=== PATIENT | male | born 2000 | race American Indian/Alaskan Native ===

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

== ENCOUNTER 2020-11-06 14:40 | Emergency (ER) | payer MEDICAID ==
--- NOTE | 2020-11-06 15:48 | CR ---
Hand Comp Min 3V Lt CLINICAL HISTORY: Injury FINDINGS: There is no acute fracture or dislocation of the hand. There is deformity of the fifth metacarpal from old healed fracture. Impression: Old healed fifth metacarpal fracture
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
== END 2020-11-06 16:15 | disposition home or self-care (01) ==
LOC: JP.ED 14:40
DX: S61.412A Laceration without foreign body of left hand, initial encounter (principal); S61.217A Laceration without foreign body of left little finger without damage to nail, initial encounter; S61.211A Laceration without foreign body of left index finger without damage to nail, initial encounter; W22.8XXA Striking against or struck by other objects, initial encounter
CPT/HCPCS: 12002; 73130-26-LT; 73130-LT; 99283-25

== ENCOUNTER 2020-11-06 18:52 | Emergency (ER) | payer MEDICAID ==
[2020-11-06] MEDS ORDERED: Diphtheria,Pertussis(Acell),Tetanus Vaccine 0.5 ML Syringe IM ONE (20:55)
--- NOTE | 2020-11-06 21:00 | EDM.PDOC ---
ED HPI GENERAL MEDICAL PROBLEM - General Chief Complaint: Wound Recheck Stated Complaint: RECHECK WOUND Time Seen by Provider: 11/06/20 20:55 Source of Information: Reports: Patient, Family (female significant other ) History Limitations: Reports: No Limitations - History of Present Illness INITIAL COMMENTS - FREE TEXT/NARRATIVE: oMno is a 20 year old male whom was evaluated earlier today for multiple abrasions and left hand laceration due to punching a TV. Mono has a history of previous 5th MCP fracture which appears unchanged from previous films. Laceration was repaired and tetanus shot was offered during visit but declined by patient during previous visit. Mono returns requesting tetanus vaccine. - Related Data Allergies Allergy/AdvReac Type Severity Reaction Status Date / Time No Known Allergies Allergy Verified 11/06/20 20:48 Home Meds: Home Meds NK [No Known Home Meds] 07/15/19 [History] Past Medical History HEENT History: Reports: None Cardiovascular History: Reports: None Respiratory History: Reports: Asthma Gastrointestinal History: Reports: None Genitourinary History: Reports: None Musculoskeletal History: Reports: Fracture Other Musculoskeletal History: left hand Neurological History: Reports: None Psychiatric History: Reports: Panic Attack Endocrine/Metabolic History: Reports: None Hematologic History: Reports: None Immunologic History: Reports: None Oncologic (Cancer) History: Reports: None Dermatologic History: Reports: None - Infectious Disease History Infectious Disease History: Reports: None - Past Surgical History Head Surgeries/Procedures: Reports: None Respiratory Surgical History: Reports: None GI Surgical History: Reports: None Male Surgical History: Reports: None Dermatological Surgical History: Reports: None Social & Family History - Caffeine Use Caffeine Use: Reports: None ED ROS GENERAL - Review of Systems Review Of Systems: Comprehensive ROS is negative, except as noted in HPI. ED EXAM, SKIN/RASH Exam: See Below Exam Limited By: No Limitations General Appearance: Alert, WD/WN Eye Exam: Bilateral Eye: Normal Inspection Ears: Hearing Grossly Normal Nose: Normal Inspection Throat/Mouth: Normal Voice, No Airway Compromise Neck: Normal Inspection Respiratory/Chest: No Respiratory Distress Cardiovascular: Normal Peripheral Pulses Extremities: Other (bandages in placed on bilateral hands ) Course - Re-Assessments/Exams Free Text/Narrative Re-Assessment/Exam: 11/06/20 20:58 Questions about wound care and tetanus where answered. Tetanus ordered and patient was monitor in department for 20 minuets without adverse reaction. Departure - Departure Time of Disposition: 09:20 Disposition: Home, Self-Care 01 Clinical Impression: Tetanus toxoid vaccination administered at current visit, Visit for wound check - Discharge Information Instructions: Laceration Care, Adult Referrals: PCP,None [Primary Care Provider] - Additional Instructions: 1. KEEP LACERATION DRY AND CLEAN X 48 HOURS 2. AFTER 48 hours CLEANSE WOUND DAILY AND APPLY TOPICAL ANTIBIOTIC OINTMENT. 3. FOLLOW WOUND CARE INFORMATION GIVEN. 4. FOLLOW UP IN CLINIC IN 3-5 days fro wound check and 7-10 days for suture removal. 5. Tylenol or Ibuprofen for pain and swelling. 6. Return for repeat evaluation if increase, changes, new or worsen symptoms. Discharge Instructions Laceration (Cut) You were seen today for a laceration (cut). Your provider examined your laceration for any problems such a buried foreign body (like glass, a splinter, or gravel), or injury to blood vessels, tendons, and nerves. Your provider may have also rinsed and/or scrubbed your laceration to help prevent an infection. It may not be possible to find all problems with your laceration on the first visit; occasionally foreign bodies or a tendon injury can go undetected. Your laceration may have been closed in one of several ways: No closure: many wounds will heal just fine without closure. Stitches: regular stitches that require removal. [place]ifton: skin regina are often used in the scalp/head. Wound adhesive (glue): skin glue can be used for certain lacerations and doesnt require removal. Wound strips (aka Butterfly bandages or steri-strips): these are bandages that help to close a wound. Absorbable stitches: dissolving stitches that go away on their own and usually dont require removal. A small percentage of wounds will develop an infection regardless of how well the wound is cared for. Antibiotics are generally not indicated to prevent an infection so are only given for a small number of high-risk wounds. Some lacerations are too high risk to close, and are left open to heal because closure can increase the likelihood that an infection will develop. Remember that all lacerations, no matter how expertly repaired, will cause scarring. We consider many factors, techniques, and materials, in our efforts to provide the best possible cosmetic outcome. Generally, every Emergency Department visit should have a follow-up clinic visit with either a primary or a specialty clinic/provider. Please follow-up as instructed by your emergency provider today. Return to the Emergency Department right away if: You have more redness, swelling, pain, drainage (pus), a bad smell, or red streaking from your laceration as these symptoms could indicate an infection. You have a fever of 100.4F or more. You have bleeding that you cannot stop at home. If your cut starts to bleed, hold pressure on the bleeding area with a clean cloth or put pressure over the bandage. If the bleeding does not stop after using constant pressure for 30 minutes, you should return to the Emergency Department for further treatment. An area past the laceration is cool, pale, or blue compared with the other side, or has a slower return of color when squeezed. Your dressing seems too tight or starts to get uncomfortable or painful. For children, signs of a problem might be irritability or restlessness. You have loss of normal function or use of an area, such as being unable to straighten or bend a finger normally. You have a numb area past the laceration. Return to the Emergency Department or see your regular provider if: The laceration starts to come open. You have something coming out of the cut or a feeling that there is something in the laceration. Your wound will not heal, or keeps breaking open. There can always be glass, wood, dirt or other things in any wound. They will not always show up, even on x-rays. If a wound does not heal, this may be why, and it is important to follow-up with your regular provider. Home Care: Take your dressing off in 12-24 hours, or as instructed by your provider, to check your laceration. Remove the dressing sooner if it seems too tight or painful, or if it is getting numb, tingly, or pale past the dressing. Gently wash your laceration 1-2 times daily with clean water and mild soap. It is okay to shower or run clean water over the laceration, but do not let the laceration soak in water (no swimming). If your laceration was closed with wound adhesive or strips: pat it dry and leave it open to the air. For all other repairs: after you wash your laceration, or at least 2 times a day, apply antibiotic ointment (such as Neosporin or Bacitracin) to the laceration, then cover it with a Band-Aid or gauze. Keep the laceration clean. Wear gloves or other protective clothing if you are around dirt. Follow-up for removal: If your wound was closed with regina or regular stitches, they need to be removed according to the instructions and timeline specified by your provider today. If your wound was closed with absorbable (dissolving) sutures, they should fall out, dissolve, or not be visible in about one week. If they are still visible, then they should be removed according to the instructions and timeline specified by your provider today. Scars: To help minimize scarring: Wear sunscreen over the healed laceration when out in the sun. Massage the area regularly once healed. You may apply Vitamin E to the healed wound. Wait. Scars improve in appearance over months and years. If you were given a prescription for medicine here today, be sure toread all of the information (including the package insert) that comes with your prescription. This will include important information about the medicine, its side effects, and any warnings that you need to know about. The pharmacist who fills the prescription can provide more information and answer questions you may have about the medicine. If you have questions or concerns that the pharmacist cannot address, please call or return to the Emergency Department. Remember that you can always come back to the Emergency Department if you are not able to see your regular provider in the amount of time listed above, if you get any new symptoms, or if there is anything that worries you. TETANUS (LOCKJAW) IMMUNIZATION GENERAL INFORMATION: Tetanus is an acute infectious disease which produces painful tonic spasms of some voluntary muscles. Often the first noticeable sign is stiffness of the jaw (lockjaw). Tetanus shots are indicated for active immunization/protection of children over six years of age and adults. The basic immunization course consists of two doses/injections given at intervals of 4-6 weeks, and followed by a third dose/injection 6-12 months later. The third dose must be given to consider immunization/technician terminal and repeater protection completed. routine booster dose/injection should be given in ten year intervals throughout life to maintain immunity. GOAL:To prevent tetanus from occurring. TREATMENT/SPECIAL INSTRUCTIONS: 1. For clean minor wounds, a tetanus booster shot is necessary if ten years have elapsed since your last booster. For all other wounds, a booster shot is needed if it has been five or more years since your last booster. 2. A small area of redness and firmness at the site of the Injection (shot) is common, and may last for a few days. 3. If your arm feels stiff and sore, exercise it. You may also apply cold to the injection area for relief of minor discomfort. 4. It is important to keep a record of the date on which you received your Tetanus booster. This is a card for you to record the date of your booster. Cut it out and keep it in your billfold for reference.
== END 2020-11-06 21:31 | disposition home or self-care (01) ==
LOC: JP.ED 18:52
DX: Z48.00 Encounter for change or removal of nonsurgical wound dressing (principal); Z23 Encounter for immunization
CPT/HCPCS: 90471; 90715; 99282

== ENCOUNTER 2021-11-07 20:46 | Emergency (ER) | payer MEDICAID ==
[2021-11-07] MEDS ORDERED: Sodium Chloride 0.9% 10 ML Syringe FLUSH PRN (20:49)
[2021-11-07 21:19] LABS: ESTIMATED GFR 110 mL/min (>60)
== END 2021-11-07 21:31 | disposition left against medical advice (07) ==
LOC: JP.ED 20:46
DX: R56.9 Unspecified convulsions (principal); F10.929 Alcohol use, unspecified with intoxication, unspecified; F12.10 Cannabis abuse, uncomplicated
CPT/HCPCS: 36415; 80053; 80143; 80179; 80305; 80307; 81001; 85025; 99285; J3490

== ENCOUNTER 2022-07-07 20:07 | Emergency (ER) | payer MEDICAID ==
[2022-07-07] MEDS ORDERED: Ketorolac 30 MG/ML SDV IM ONE (20:48)
[2022-07-07 21:22] LABS: ESTIMATED GFR 109 mL/min (>60)
[2022-07-07 21:46] LABS: LYME AB IgG Negative (Negative); LYME AB IgM Negative (Negative)
[2022-07-07] MEDS ORDERED: Cyclobenzaprine 10 MG Tab PO ONE (22:13)
[2022-07-07 22:30] LABS: CORONAVIRUS COVID-19 NAA NEGATIVE (NEGATIVE)
[2022-07-07] MEDS ORDERED: fentaNYL 50 MCG/ML SDV IM ONE (22:46)
== END 2022-07-07 23:27 | disposition home or self-care (01) ==
LOC: JP.ED 20:07
DX: M54.2 Cervicalgia (principal); J45.909 Unspecified asthma, uncomplicated; Z20.822 Contact with and (suspected) exposure to COVID-19
CPT/HCPCS: 0241U; 36415; 80053; 83605; 85025; 86140; 86618; 87081; 87880; 96372; 99284; A9270; J1885; J3010; 99283

== ENCOUNTER 2022-07-10 19:13 | Emergency (ER) | payer MEDICAID ==
[2022-07-10] MEDS ORDERED: Ondansetron 4 MG/2 ML SDV IVPUSH ONE (19:52)
[2022-07-10] MEDS ORDERED: LORazepam 2 MG/ML SDV IVPUSH ONE (19:52)
[2022-07-10] MEDS ORDERED: Sodium Chloride 0.9% 1,000 ML IV SCH (20:00)
== END 2022-07-10 21:50 | disposition home or self-care (01) ==
LOC: JP.ED 19:13
DX: M62.838 Other muscle spasm (principal); J45.909 Unspecified asthma, uncomplicated; Z79.899 Other long term (current) drug therapy
CPT/HCPCS: 70450; 72125; 76377; 80305-QW; 96361; 96374; 96375; 99283; 99284-25; J2060; J2405; J7030

== ENCOUNTER 2022-07-11 17:24 | Emergency (ER) | payer MEDICAID ==
[2022-07-11] MEDS ORDERED: LORazepam 1 MG Tab PO ONE (18:25)
[2022-07-11] MEDS ORDERED: fentaNYL 50 MCG/ML SDV IM ONE (19:05)
== END 2022-07-11 19:35 | disposition home or self-care (01) ==
LOC: JP.ED 17:24
DX: M54.2 Cervicalgia (principal); F41.9 Anxiety disorder, unspecified; M62.838 Other muscle spasm; F12.90 Cannabis use, unspecified, uncomplicated; J45.909 Unspecified asthma, uncomplicated
CPT/HCPCS: 96372; 99283; A9270; J3010

== ENCOUNTER 2022-07-14 18:32 | Emergency (ER) | payer MEDICAID ==
[2022-07-14] MEDS ORDERED: FLUoxetine 10 MG Cap PO ONE (19:23)
[2022-07-14] MEDS ORDERED: LORazepam 1 MG Tab PO ONE (19:58)
== END 2022-07-14 20:15 | disposition home or self-care (01) ==
LOC: JP.ED 18:32
DX: M62.838 Other muscle spasm (principal); F41.1 Generalized anxiety disorder
CPT/HCPCS: 99283; A9270-GY

== ENCOUNTER 2023-09-25 06:17 | Emergency (ER) | payer MEDICAID ==
[2023-09-25] MEDS ORDERED: Sodium Chloride 0.9% 10 ML Syringe FLUSH PRN (06:39)
[2023-09-25 06:47] LABS: BASOPHILS ABSOLUTE AUTO 0.03 K/uL (0.00-0.10); BASOPHILS PERCENT AUTO 0.5 % (0.1-1.3); EOSINOPHILS ABSOLUTE AUTO 0.09 K/uL (0.00-0.40); EOSINOPHILS PERCENT AUTO 1.5 % (0.0-5.4); HEMATOCRIT 44.4 % (38.4-49.7); IMMATURE GRAN PERCENT AUTO 0.3 % (0.0-0.7); LYMPHOCYTES ABSOLUTE AUTO 2.32 K/uL (0.8-3.3); LYMPHOCYTES PERCENT AUTO 38.2 % (11.4-47.7); MEAN CORPUSCULAR HEMOGLOBIN 31.9 pg (31.6-35.5); MEAN CORPUSCULAR VOLUME 88.6 fL (81.4-99.0); MONOCYTES PERCENT AUTO 8.2 % (3.3-12.6); NEUTROPHILS ABSOLUTE AUTO 3.11 K/uL (1.0-7.6); NEUTROPHILS PERCENT AUTO 51.3 % (40.0-78.1); PLATELET COUNT,PLT 245 K/uL (130-375); RED BLOOD CELL COUNT 5.01 M/uL (4.14-5.76); WHITE BLOOD CELL COUNT,WBC 6.1 K/uL (3.2-11.0)
[2023-09-25 06:49] LABS: IMMATURE GRAN ABSOLUTE AUTO 0.02 K/uL (0.00-0.23)
[2023-09-25] MEDS: Sodium Chloride 0.9% 1,000 ML IV SCH (07:00)
[2023-09-25 07:09] LABS: A/G RATIO 1.2 (1.2-2.2); ALANINE AMINOTRANSFERASE,ALT 30 U/L (12-78); ALBUMIN 4.2 g/dL (3.4-5.0); ALKALINE PHOSPHATASE 71 U/L (46-116); ANION GAP 12.1 mmol/L (5.0-14.0); ASPARTATE AMNIOTRANSFERASE,AST 18 U/L (15-37); BILIRUBIN TOTAL 0.3 mg/dL (0.2-1.0); BLOOD UREA NITROGEN,BUN 17 mg/dL (7-18); CALCIUM 8.7 mg/dL (8.5-10.1); CARBON DIOXIDE,CO2 23 mmol/L (21-32); CHLORIDE,CL 106 mmol/L (100-108); CREATININE 0.9 mg/dL (0.8-1.3); EST CRCL DRUG DOSING (CG) 152.57 mL/min; ESTIMATED GFR 123 mL/min (>60); GLUCOSE RANDOM 101 mg/dL (74-106); POTASSIUM,K 3.8 mmol/L (3.6-5.2); PROTEIN TOTAL,TP 7.8 g/dL (6.4-8.2); SODIUM,NA 141 mmol/L (140-148)
[2023-09-25 09:01] LABS: AMPHETAMINES SCREEN, URINE NEGATIVE (NEGATIVE); BARBITURATE SCREEN,URINE NEGATIVE (NEGATIVE); BENZODIAZEPINES SCREEN,URINE NEGATIVE (NEGATIVE); METHADONE SCREEN, URINE NEGATIVE (NEGATIVE); METHAMPHETAMINES SCREEN, URINE NEGATIVE (NEGATIVE); OXYCODONE SCREEN,URINE NEGATIVE (NEGATIVE); PROPOXYPHENE SCREEN,URINE NEGATIVE (NEGATIVE); THC SCREEN,URINE 50 NG/ML NEGATIVE (NEGATIVE)
== END 2023-09-25 10:38 | disposition home or self-care (01) ==
LOC: JP.ED 06:17
DX: F10.129 Alcohol abuse with intoxication, unspecified (principal); Z86.16 Personal history of COVID-19; Y90.6 Blood alcohol level of 120-199 mg/100 ml; Z88.8 Allergy status to other drugs, medicaments and biological substances; Z79.899 Other long term (current) drug therapy
CPT/HCPCS: 36415; 80053; 80143; 80179; 80305-QW; 80307; 85025; 99284; 99285; J7050

== ENCOUNTER 2024-05-17 05:53 | Emergency (ER) | payer MEDICAID ==
[2024-05-17] MEDS: Ketorolac 30 MG/ML SDV IM ONE (06:38)
== END 2024-05-17 07:21 | disposition home or self-care (01) ==
LOC: JP.ED 05:53
DX: R68.84 Jaw pain (principal); F17.210 Nicotine dependence, cigarettes, uncomplicated; Z88.8 Allergy status to other drugs, medicaments and biological substances; Z86.16 Personal history of COVID-19
CPT/HCPCS: 70150; 96372; 99283; J1885

== ENCOUNTER 2024-12-30 05:21 | Emergency (ER) | payer MEDICAID ==
[2024-12-30 05:38] LABS: BASOPHILS ABSOLUTE AUTO 0.04 K/uL (0.00-0.10); BASOPHILS PERCENT AUTO 0.6 % (0.1-1.3); EOSINOPHILS ABSOLUTE AUTO 0.09 K/uL (0.00-0.40); EOSINOPHILS PERCENT AUTO 1.4 % (0.0-5.4); IMMATURE GRAN PERCENT AUTO 0.3 % (0.0-0.7); LYMPHOCYTES ABSOLUTE AUTO 1.42 K/uL (0.8-3.3); LYMPHOCYTES PERCENT AUTO 22.3 % (11.4-47.7); MONOCYTES ABSOLUTE AUTO 0.37 K/uL (0.20-0.90); MONOCYTES PERCENT AUTO 5.8 % (3.3-12.6); NEUTROPHILS ABSOLUTE AUTO 4.43 K/uL (1.0-7.6); NEUTROPHILS PERCENT AUTO 69.6 % (40.0-78.1); PLATELET COUNT,PLT 295 K/uL (130-375); RED BLOOD CELL COUNT 5.44 M/uL (4.14-5.76); WHITE BLOOD CELL COUNT,WBC 6.4 K/uL (3.2-11.0)
[2024-12-30 05:40] LABS: APPEARANCE,URINE CLEAR (CLEAR); GLUCOSE,URINE NEGATIVE (NEGATIVE); OCCULT BLOOD,URINE NEGATIVE (NEGATIVE)
[2024-12-30 05:41] LABS: AMPHETAMINES SCREEN, URINE NEGATIVE (NEGATIVE); METHADONE SCREEN, URINE NEGATIVE (NEGATIVE); METHAMPHETAMINES SCREEN, URINE NEGATIVE (NEGATIVE); OXYCODONE SCREEN,URINE NEGATIVE (NEGATIVE); PROPOXYPHENE SCREEN,URINE NEGATIVE (NEGATIVE); THC SCREEN,URINE 50 NG/ML NEGATIVE (NEGATIVE)
[2024-12-30 05:42] LABS: IMMATURE GRAN ABSOLUTE AUTO 0.02 K/uL (0.00-0.23)
[2024-12-30] MEDS: Naloxone 0.4 MG/ML SDV IVPUSH ONE ×2 (05:44→05:45)
[2024-12-30] MEDS: Dextrose 5%-0.9% NaCl with KCl 1,000 ML IV SCH (05:45)
[2024-12-30 05:58] LABS: A/G RATIO 1.1 (1.2-2.2); ALANINE AMINOTRANSFERASE,ALT 23 U/L (12-78); ASPARTATE AMNIOTRANSFERASE,AST 15 U/L (15-37); BILIRUBIN TOTAL 0.2 mg/dL (0.2-1.0); BLOOD UREA NITROGEN,BUN 8 mg/dL (7-18); CARBON DIOXIDE,CO2 25 mmol/L (21-32); CHLORIDE,CL 105 mmol/L (100-108); CREATININE 0.7 mg/dL (0.8-1.3); EST CRCL DRUG DOSING (CG) 183.90 mL/min; ESTIMATED GFR 132 mL/min (>60); GLUCOSE RANDOM 97 mg/dL (74-106); LACTIC ACID 2.3 mmol/L (0.4-2.0); POTASSIUM,K 3.5 mmol/L (3.6-5.2); PROTEIN TOTAL,TP 7.9 g/dL (6.4-8.2); SODIUM,NA 142 mmol/L (140-148)
[2024-12-30 06:01] LABS: TROPONIN I HIGH SENSITIVITY < 4.0 pg/mL (<=60.3)
== END 2024-12-30 10:48 | disposition home or self-care (01) ==
LOC: JP.ED 05:21
DX: R56.9 Unspecified convulsions (principal); J45.909 Unspecified asthma, uncomplicated; Z88.8 Allergy status to other drugs, medicaments and biological substances; Z86.16 Personal history of COVID-19
CPT/HCPCS: 36415; 70450; 80053; 80305; 80307; 81003; 83605; 83735; 84484; 85025; 93005; 96365; 96366; 96368; 96375; 99285; J1808; J2312; J3411; J3480